=== PATIENT | female | born 2005 | race Caucasian/White ===

== ENCOUNTER → 2024-04-23 14:30 | Outpatient (BNV) | payer BC, SELFPAY | PROVIDERS: PCP Pediatrics; Visit Provider Internal Medicine | DX: N63.20 Unspecified lump in the left breast, unspecified quadrant (principal) | CPT/HCPCS: 76642 ==

== ENCOUNTER 2024-04-23 14:32 | Outpatient (REF) | payer BC, SELFPAY ==
--- NOTE | ~2024-04-23 | US_ITS ---
EXAMINATION: US DIAGNOSTIC ULTRASOUND BREAST, LEFT CLINICAL INFORMATION: Left breast lump which comes and goes for 3 weeks. 18 Year-old female. COMPARISON: Comparison is made with relevant prior imaging. TECHNIQUE: Ultrasound of the breast is performed with real-time myers scale imaging and color Doppler. FINDINGS: Targeted color Doppler ultrasound scanning from 4-8 o'clock demonstrates normal fibroglandular breast tissue. At 6:00 2 cm from the nipple there is an incidental simple to minimally complicated cyst measuring 3 x 2 x 3 mm which is benign. Results are discussed with the patient at time of visit. US/US breast LT limited mamm only IMPRESSION: 1. Simple to minimally complicated cyst on ultrasound. Benign. 2. No sonographic abnormality to account for the patient's left breast palpable lump. Recommend clinical evaluation and follow-up. ASSESSMENT: BI-RADS 2: Benign RECOMMENDATION: 1. Patient should be managed based on the clinical impression. Decision to proceed with biopsy should be based on clinical grounds and degree of clinical concern. 2. Otherwise, routine annual screening mammography at age 38. This patient's information was entered into a reminder system with a target due date for their next mammogram. Electronically signed by: Nani Valdes DO 04/24/2024 12:23 PM DC
== END 2024-04-23 14:33 | disposition home or self-care (01) ==
LOC: HO.MAMMO 14:32
PROVIDERS: PCP Pediatrics; Visit Provider Pediatrics
DX: N63.25 Unspecified lump in the left breast, overlapping quadrants (principal)
CPT/HCPCS: 76642